=== PATIENT | female | born 1960 | race American Indian/Alaskan Native ===

== ENCOUNTER 2019-12-13 10:12 | Outpatient (CLI) | payer OTHER ==
--- NOTE | 2019-12-13 13:31 | XRay Report ---
RIGHT SHOULDER 3 VIEWS INDICATION: RIGHT SHOULDER PAIN. COMPARISON: No relevant prior imaging study available. FINDINGS: No acute skeletal abnormality. No significant degenerative changes. No soft tissue calcifications. IMPRESSION: 1. No acute findings. BILATERAL HIPS AND PELVIS 3 VIEWS INDICATION: Bilateral hip pain. COMPARISON: No relevant prior imaging study available. FINDINGS: No acute skeletal abnormality. No significant degenerative changes. No soft tissue calcifications. No osteonecrosis. IMPRESSION: 1. No acute findings. LUMBAR SPINE 3 VIEWS INDICATION: Low back pain. COMPARISON: No relevant prior imaging study available. FINDINGS: Lumbar vertebral body height and disc space height is maintained. There is mild lower lumbar facet ar thropathy. No fracture is seen. Alignment is within normal limits. IMPRESSION: 1. No acute findings. Signer Name: Choco Bell MD Signed: 12/13/2019 1:27 PM Workstation Name: [id number]
== END 2019-12-13 10:13 | disposition home or self-care (01) ==
LOC: XRAY 10:12
PROVIDERS: ATTEND Internal Medicine
DX: M47.816 Spondylosis without myelopathy or radiculopathy, lumbar region (principal); M25.511 Pain in right shoulder; M25.551 Pain in right hip; M25.552 Pain in left hip
CPT/HCPCS: 72100; 73521